=== PATIENT | female | born 1940 | race Asian ===

== ENCOUNTER 2018-07-23 16:25 | Emergency (ER) | payer MEDICARE, OTHER ==
[~2018-07-23] VITALS: Ht 147.3 cm; Wt 37.2 kg
[~2018-07-23 16:25] MED LIST: ASPI-1182 PO; ATOR40TA28 PO; CARV12 PO; CHOL50004 PO; FERR-89 PO; HYDR25TA PO; ISOS60TA4 PO
[2018-07-23] MEDS ORDERED: SODIUM BICARBONATE 50 MEQ/50 ML VIAL IVP ONE (16:28)
[2018-07-23] MEDS ORDERED: CALCIUM CHLORIDE 100 MG/ML 10 ML SYRINGE IVP ONE (16:28)
[2018-07-23] MEDS ORDERED: EPINEPHrine 1:10,000 [1 MG/10 ML] SYRINGE IVP ONE (16:28)
[2018-07-23] MEDS ORDERED: AMIODARONE HCL 50 MG/ML 3 ML VIAL IVP ONE (16:28)
[2018-07-23] MEDS ORDERED: INSULIN REGULAR, HUMAN 100 UNITS/ML IVP ONE (17:00)
[2018-07-23] MEDS ORDERED: SODIUM CHLORIDE 0.9% 1,000 ML IV ONE ×2 (17:00)
[2018-07-23] MEDS ORDERED: HYDR25TA PO (17:06)
[2018-07-23 17:15] VITALS: BP 98/66
[2018-07-23] MEDS ORDERED: ETOMIDATE 2 MG/ML 10 ML VIAL IVP ONE (17:15)
[2018-07-23] MEDS ORDERED: ROCURONIUM BROMIDE 10 MG/ML 5 ML VIAL IVP ONE (17:15)
[2018-07-23] MEDS ORDERED: EPINEPHrine 1:10,000 [1 MG/10 ML] SYRINGE ONE (17:36)
[2018-07-23] MEDS ORDERED: ETOMIDATE 2 MG/ML 10 ML VIAL ONE (17:37)
[2018-07-23] MEDS ORDERED: SUCCINYLCHOLINE CHLORIDE 20 MG/ML 10 ML VIAL ONE (17:37)
[2018-07-23 17:51] LABS: APPEARANCE,URINE CLOUDY (CLEAR); BILIRUBIN,URINE NEGATIVE (NEGATIVE); GLUCOSE, URINE (UA) >=1000 mg/dL (NEGATIVE); KETONES,URINE TRACE mg/dL (NEGATIVE); LEUKOCYTE ESTERASE ,URINE SMALL (NEGATIVE); NITRATE,URINE NEGATIVE (NEGATIVE); OCCULT BLOOD,URINE MODERATE (NEGATIVE); PROTEIN,URINE NEGATIVE (NEGATIVE); UROBILINOGEN,URINE 0.2 mg/dL (<=1.0)
[2018-07-23 17:57] LABS: BACTERIA,URINE Many /HPF (None Seen); SQUAMOUS EPITHELIAL CELL,UR Few /LPF (None Seen); WBC,URINE 51-100 /HPF (0-5)
== END 2018-07-23 21:20 | disposition expired ==
LOC: EMS 16:27
DX: E86.0 Dehydration (principal); N39.0 Urinary tract infection, site not specified; E11.65 Type 2 diabetes mellitus with hyperglycemia; E78.00 Pure hypercholesterolemia, unspecified; I10 Essential (primary) hypertension; Z79.82 Long term (current) use of aspirin
CPT/HCPCS: 31500; 71045; 81001; 87077; 87086; 87186; 92950; 93005; 96374; 96375; 99291; J0171; J0282; J0330; J1815; J3490 ×3; J7030; 94002